=== PATIENT | female | born 1990 | race Caucasian/White ===

== ENCOUNTER 2024-09-15 19:22 | Emergency (ER) | payer OTHER, SELFPAY ==
[2024-09-15 19:30] VITALS: BP 130/77; PULSE 64; RESP 16; TEMP 36.2; O2SAT 100; BMI 28.3
[2024-09-15 20:22] LABS: Bacteria Urine Occasional (0-1); Culture Indicated Urine Cult Not Indicated; RBC Urine 10-30/HPF (0-5/HPF); Squamous Epithelial Cell Urine 0-1 /HPF (0-5/HPF); Urine Volume 10mL (spun); WBC Urine 0-1/HPF (0-5/HPF)
== END 2024-09-15 21:48 | disposition left against medical advice (07) ==
PROVIDERS: Emergency Provider Emergency Medicine
DX: N93.9 Abnormal uterine and vaginal bleeding, unspecified (principal); R10.9 Unspecified abdominal pain
CPT/HCPCS: 81003; 81015; 81025; 99282

== ENCOUNTER 2025-01-20 11:31 | Emergency (ER) | payer OTHER, SELFPAY ==
[2025-01-20 12:05] VITALS: BP 124/79; PULSE 63; RESP 18; TEMP 36.2; O2SAT 98; BMI 29.2
--- NOTE | 2025-01-20 12:09 | DI.RAD.S_ITS ---
PROCEDURE: XR KNEE LT 3V INDICATIONS: pain TECHNIQUE: 3 views of the knee were acquired. COMPARISON: None. FINDINGS: Bones: No fractures or dislocations. No patellar subluxation. No suspicious bony lesions. Soft tissues: No joint effusion. No suspicious soft tissue calcifications. IMPRESSION: No acute left knee fracture or dislocation. No significant joint effusion. Dictated by: Edmund Michelle M.D. on 01/20/2025 at 12:22 Approved by: Edmund Michelle M.D. on 01/20/2025 at 12:22
--- NOTE | 2025-01-20 14:04 | ED.LOWEXIN ---
HPI - Extremity Injury (Lower) General Chief Complaint: Extremity Injury, Lower Stated Complaint: Left knee pain Time Seen by Provider: 01/20/25 13:33 History of Present Illness HPI Narrative: Ms. Fontana is a pleasant 34-year-old female with a past medical history of tubal ligation and scoliosis who presents to the emergency department for left knee pain x ?a few weeks. Patient works as a [employer]. States that she does not recall a specific injury but over the last few weeks has had progressively worsening left knee pain associated with popping and occasionally giving out. Pain occasionally radiates down the leg. No direct trauma to the knee. No fevers. No redness. No swelling. No medications prior to arrival. She is ambulatory. Related Data Allergies Allergy/AdvReac Type Severity Reaction Status Date / Time amoxicillin AdvReac Mild Rash Verified 09/15/24 19:33 sulfamethoxazole AdvReac Mild Rash Verified 09/15/24 19:33 [From Bactrim] trimethoprim [From Bactrim] AdvReac Mild Rash Verified 09/15/24 19:33 Review of Systems Review of Systems ROS Unobtainable: All systems reviewed & are unremarkable except as noted in HPI and below Patient History Social History Smoking Status: Never smoker Smoking Status: Never smoker alcohol intake frequency: 0-2 drinks per day Exam Narrative Exam Narrative: GENERAL: 34 year old patient appears stated age. Well-developed patient, in no acute distress. HEAD: Atraumatic. Normocephalic. RESPIRATORY: ?Nonlabored respirations. ?Speaking in clear, full sentences. EXTREMITIES: Pain with passive flexion-extension of left knee. Lateral left knee pain with varus stress. No reproducible joint laxity. No redness swelling or deformities. No tenderness to palpation. Strong DP and PT pulses bilaterally, sensation intact to light touch in bilateral lower extremities. NEURO: AOx3. ?Clear speech. ?Moves all 4 extremities appropriately. SKIN: No rash or erythema of visible areas Initial Vital Signs Initial Vital Signs: Vital Signs Temperature 97.2 F L 01/20/25 12:05 Pulse Rate 63 01/20/25 12:05 Respiratory Rate 18 01/20/25 12:05 Blood Pressure 124/79 01/20/25 12:05 Pulse Oximetry 98 01/20/25 12:05 Oxygen Delivery Method Room Air 01/20/25 12:05 Course Orders Ordered: ED Orders 01/20/25 12:09 XR knee LT 3V Stat Discontinued Medications Acetaminophen (Acetaminophen 325 Mg Tablet) 975 mg PO NOW ONE Stop: 01/20/25 14:15 Last Admin: 01/20/25 14:40 Dose: 975 mg Ketorolac Tromethamine (Ketorolac 30 Mg/Ml Vial) 30 mg IM NOW ONE Stop: 01/20/25 14:15 Last Admin: 01/20/25 14:40 Dose: 30 mg Vital Signs Vital signs: Vital Signs - 8 hr 01/20/25 12:05 Temperature 97.2 F L Pulse Rate 63 Respiratory Rate 18 Blood Pressure 124/79 Pulse Oximetry 98 Oxygen Delivery Method Room Air MDM - Extremity Injury (Lower) Medical Records Medical records narrative: None available Imaging Data Left Knee X-Ray: Radiologist's Impression: PROCEDURE: XR KNEE LT 3V INDICATIONS: pain TECHNIQUE: 3 views of the knee were acquired. COMPARISON: None. FINDINGS: Bones: No fractures or dislocations. No patellar subluxation. No suspicious bony lesions. Soft tissues: No joint effusion. No suspicious soft tissue calcifications. IMPRESSION: No acute left knee fracture or dislocation. No significant joint effusion. MDM Narrative Medical decision making narrative: 34-year-old female with a past medical history of tubal ligation and scoliosis who presents to the emergency department for left knee pain x ?a few weeks. Differential diagnosis includes but not limited to left knee sprain, strain, soft tissue injury, ligament injury, meniscus injury, fracture, dislocation, etc. On exam patient is in no acute distress, nontoxic appearing, vital signs normal. She has no obvious deformities or skin changes of left knee. No signs of infection. Full range of motion. No reproducible joint laxity. She does have lateral pain with varus stress. X-rays obtained in triage revealing no acute knee fracture or dislocation. No significant joint effusion. We will treat pain with Toradol, Tylenol, Francisco J wrap. Recommended rice therapy, follow up with PCP/ortho. Discussed strict ED return precautions. Patient verbalized understanding of all information agreeable with the plan. She is stable for discharge home, declines the need for crutches. Discharge Plan Departure Patient Disposition: Home Clinical Impression: Left knee sprain Qualifiers: Encounter type: initial encounter Involved ligament of knee: unspecified ligament Qualified Code(s): S83.92XA - Sprain of unspecified site of left knee, initial encounter Instructions: DI for Knee Sprain Activity Restrictions/Additional Instructions: Thank you for coming to the emergency department. Today you were evaluated for left knee pain, popping, giving out. Your x-ray shows no dislocation fractures or effusions. X-rays do not tell us about foreign ligament or soft tissue injuries. I would like you to wear an Francisco J wrap/brace on the left knee and follow up with the primary care doctor or orthopedic doctor for further evaluation. Please use RICE therapy for your pain in addition to ibuprofen/acetaminophen. Rest the painful area. Ice the area of pain/swelling for at least 15 minutes, 4x a day. Compress the area of swelling using a brace, wrap, or splint if applied. Elevate the painful or swollen extremity by supporting it above the level of the heart with pillows when sitting or laying. Please take Ibuprofen (Motrin/Advil) or Acetaminophen (Tylenol) for pain. These are available over the counter. You may take Ibuprofen 600 mg every 8 hours with food for pain. You may also take Acetaminophen 650 mg every 4-6 hours for pain. Do not exceed 3000 mg of Tylenol a day as this can cause liver damage. Do not drink alcohol with either of these medications. Please follow up with your primary care doctor within the next 2-3 days for ER follow-up. (If you do not have a PCP you can call [phone]. ?to schedule an appointment with an [facility] Primary Care Provider) IF YOU DEVELOP ANY NEW OR WORSENING SYMPTOMS, RETURN TO THE ER! Please read the attached instructions, they highlight more specific treatments and interventions for you at home. Thank you for letting me participate in your care, Aurora Meehan PA-C Stand Alone Forms: Patient Portal/API/Survey, Work Release Note
[2025-01-20] MEDS: KETOROLAC 30 MG/ML VIAL IM (14:40)
[2025-01-20] MEDS: ACETAMINOPHEN 325 MG TABLET 975 MG PO (14:40)
[2025-01-20 15:03] VITALS: BP 121/78; PULSE 61; RESP 17; O2SAT 99
== END 2025-01-20 15:04 | disposition home or self-care (01) ==
PROVIDERS: Emergency Provider Physician Assistant
DX: S83.92XA Sprain of unspecified site of left knee, initial encounter (principal)
CPT/HCPCS: 73562; 96372; 99283; J1885

== ENCOUNTER → 2025-02-09 09:50 | Outpatient (CLI) | payer OTHER, SELFPAY ==
[2025-02-09 10:36] LABS: Influenza A - CEPHEID Flu A NEGATIVE (NEGATIVE); Influenza B - CEPHEID Flu B NEGATIVE (NEGATIVE); Respiratory Syncytial Virus Negative (Negative)
[2025-02-09 10:37] LABS: COVID-19 CEPHEID 4-PLEX PCR Negative (Negative)
== END ==
PROVIDERS: PCP Family Medicine; Visit Provider Physician Assistant
DX: R05.9 Cough, unspecified (principal)
CPT/HCPCS: 0241U; 87070